=== PATIENT | male | born 1995 | race Two or more races ===

== ENCOUNTER 2020-09-27 09:18 | Emergency (ER) | payer OTHER ==
[~2020-09-27] VITALS: Ht 162.6 cm; Wt 59.0 kg
== END 2020-09-27 10:37 | disposition home or self-care (01) ==
LOC: ER 09:18
DX: S01.122A Laceration with foreign body of left eyelid and periocular area, initial encounter (principal); W18.09XA Striking against other object with subsequent fall, initial encounter; Y93.89 Activity, other specified; Y92.89 Other specified places as the place of occurrence of the external cause; Y99.8 Other external cause status

== ENCOUNTER 2020-10-06 07:48 | Emergency (ER) | payer OTHER ==
[~2020-10-06] VITALS: Ht 172.7 cm; Wt 61.2 kg
== END 2020-10-06 08:59 | disposition home or self-care (01) ==
LOC: ER 07:48
DX: Z48.02 Encounter for removal of sutures (principal)